=== PATIENT | female | born 1995 | race Hispanic/Latino ===

== ENCOUNTER 2019-10-18 05:41 | Inpatient (IN) | payer MEDICAID ==
[2019-10-18] MEDS ORDERED: FAMOTIDINE 20 MG/2 ML INJ IV ONE (06:31)
[2019-10-18] MEDS ORDERED: METOCLOPRAMIDE 10 MG/2 ML INJ IV ONE (06:31)
[2019-10-18] MEDS ORDERED: BICITRA ORAL LIQD 30ML PO ONE (06:31)
[2019-10-18] MEDS ORDERED: ePHEDrine SULFATE 50 MG/1 ML INJ IV PRN (06:31)
[2019-10-18] MEDS ORDERED: ACETAMINOPHEN 325 MG TAB PO PRN (07:00)
[2019-10-18] MEDS ORDERED: OXYTOCIN 20 UNIT/1000ML DRIP 20 UNITS/1,000 ML BAG IV SCH ×3 (07:00→11:28)
[2019-10-18] MEDS ORDERED: LACTATED RINGERS 1,000 ML IV SCH ×2 (07:00)
[2019-10-18] MEDS ORDERED: ceFAZolin/Water 2 GM/20 ML 2 GM/20 ML SYRINGE IV NR (07:00)
--- NOTE | 2019-10-18 07:00 | Anesthesia Day of Surgery ---
Anesthesia Day of Surgery - Day of Surgery Patient Examined: Yes Patient H&P Reviewed: Yes Patient is NPO: Yes
--- NOTE | 2019-10-18 07:00 | Anesthesia Consultation ---
Anesthesia Consult and Med Hx Date of service: 10/18/19 - Airway Anesthetic Teeth Evaluation: Good ROM Head & Neck: Adequate Mental/Hyoid Distance: Adequate Mallampati Class: Class II Intubation Access Assessment: Probably Good - Pulmonary Exam CTA: Yes - Cardiac Exam Cardiac Exam: RRR - Pre-Operative Health Status ASA Pre-Surgery Classification: ASA2 Proposed Anesthetic Plan: Spinal - Pulmonary Hx Asthma: No - Cardiovascular System Hx Hypertension: No - Central Nervous System Hx Seizures: No Hx Psychiatric Problems: No - Endocrine Hx Renal Disease: No Hx Hypothyroidism: No Hx Hyperthyroidism: No - Hematic Hx Anemia: No Hx Sickle Cell Disease: No - Other Systems Hx Alcohol Use: No
[2019-10-18 07:03] LABS: Hematocrit 32.8 % (30.3-42.9); Hemoglobin 11.2 gm/dl (10.1-14.3); Mean Corpuscular HGB Conc 34 % (30-34); Mean Corpuscular Volume 88 fl (79-97); Platelet Count 276 K/mm3 (140-440); Red Blood Count 3.71 M/mm3 (3.65-5.03); Red Cell Distribution Width 14.4 % (13.2-15.2)
--- NOTE | 2019-10-18 07:47 | History and Physical Report ---
History of Present Illness Date of examination: 10/18/19 Date of admission: 10/18/19 05:41 Chief complaint: I am here for my History of present illness: Patient is a 24-year-old 3 para 1 female who presents for an elective repeat section. She has had an uncomplicated course. She entered into care with [facility] at 12 weeks gestation. Her labs are within normal limits except for her rubella; she is not immune. She is GBS negative. Past History Past Medical History: no pertinent history Past Surgical History: section Family/Genetic History: none Social history: single - Obstetrical History Expected Date of Delivery: 10/22/19 Actual Gestation: 39 Week(s) 4 Day(s) : 3 Para: 1 Number of Living Children: 1 Medications and Allergies Allergies Allergy/AdvReac Type Severity Reaction Status Date / Time No Known Allergies Allergy Verified 12/21/12 23:24 Home Medications Medication Instructions Recorded Confirmed Last Taken Type Ciprofloxacin HCl [Cipro] 500 mg PO Q12H #20 tab 12/22/12 Unknown Rx Phenazopyridine [Pyridium] 200 mg PO PC #9 tablet 12/22/12 Unknown Rx Docusate Sodium [Colace] 100 mg PO BID PRN #60 capsule 10/19/19 Unknown Rx Ibuprofen [Motrin] 800 mg PO Q8HR PRN #40 tablet 10/19/19 Unknown Rx oxyCODONE /ACETAMINOPHEN [Percocet 2 tab PO Q6HR PRN #40 tablet 10/19/19 Unknown Rx 5/325] Active Meds: Active Medications Acetaminophen (Tylenol) 650 mg PO Q4H PRN PRN Reason: Pain, Mild (1-3) Ephedrine Sulfate (Ephedrine Sulfate) 10 mg IV Q2M PRN PRN Reason: Hypotension Lactated Ringer's (Lactated Ringers) 1,000 mls @ 125 mls/hr IV DIRECT LORA Oxytocin/Sodium Chloride (Pitocin/Ns 20 Unit/1000ml Drip) 20 units in 1,000 mls @ 125 mls/hr IV DIRECT LORA Lactated Ringer's (Lactated Ringers) 1,000 mls @ 2,250 mls/hr IV PREOP LORA Stop: 10/19/19 07:27 Last Admin: 10/18/19 07:07 Dose: 2,250 mls/hr Documented by: Cefazolin Sodium (Ancef/Sterile Water 2 Gm/20 Ml) 2 gm in 20 mls @ 80 mls/hr IV PREOP NR; Protocol Stop: 10/18/19 22:00 Review of Systems All systems: negative Constitutional: fatigue - Vital Signs Vital signs: Vital Signs Pulse BP 95 H 109/53 10/18/19 06:15 10/18/19 06:15 Temp Pulse Resp BP Pulse Ox 98.3 F 98 H 14 109/53 96 10/18/19 06:16 10/18/19 06:16 10/18/19 06:16 10/18/19 06:16 10/18/19 06:16 - Physical Exam Breasts: Cardiovascular: Regular rate, Normal S1, Normal S2 Lungs: Positive: Clear to auscultation, Normal air movement Abdomen: Positive: normal appearance, soft, normal bowel sounds. Negative: distention, tenderness Vulva: both: normal Vagina: Positive: normal moisture. Negative: discharge Cervix: Negative: lesion, discharge Uterus: Positive: normal size, normal contour Adnexa: both: normal Anus/Rectum: Positive: normal perianal skin, heme negative. Negative: rectal mass, hemorrhoids Extremities: Deep Tendon Reflex Grade: Normal +2 - Obstetrical FHR: auscultation normal Cervical Dilatation: 0 Uterine Contraction Pattern: Absent Results Result Diagrams: 10/18/19 23:11 Abnormal lab results 10/18/19 Range/Units 06:30 WBC 12.8 H (4.5-11.0) K/mm3 All other labs normal. Assessment and Plan IUP at 39-4/7-week here for elective repeat section. Consents have been signed and placed on the chart. We will proceed with section as planned.
[2019-10-18] MEDS ORDERED: SODIUM CHLORIDE 0.9% IRR 1,500 ML BOTTLE IR ONE (07:50)
[2019-10-18] MEDS ORDERED: ceFAZolin/STERILE WATER 2 GM/20 ML SYRINGE IV ONE (07:50)
[2019-10-18] MEDS ORDERED: WATER FOR IRRIG STERILE 1,500 ML BOTTLE IR ONE (07:50)
[2019-10-18] MEDS ORDERED: ONDANSETRON 4 MG/2 ML INJ ONE (08:58)
[2019-10-18] MEDS ORDERED: KETOROLAC 30 MG/1 ML INJ ONE (09:25)
[2019-10-18] MEDS ORDERED: BUPIVACAINE/PF (0.5%) 5 MG/1 ML 30 ML VIAL INFILTRATI ONE (09:25)
[2019-10-18] MEDS ORDERED: DEXMEDETOMIDINE 200 MCG/2 ML VIAL IV ONE (09:25)
[2019-10-18] MEDS ORDERED: PHENYLEPHRINE/NS 1,000 MCG/10 ML SYRINGE (OR USE) IV ONE (09:25)
[2019-10-18] MEDS ORDERED: GLYCOPYRROLATE 0.4 MG/2 ML INJ ONE (09:25)
--- NOTE | 2019-10-18 09:31 | Procedure Note ---
OB Delivery Note - Delivery Date of Delivery: 10/18/19 Surgeon: JOSH VAIL Estimated blood loss: other (700cc) - Section Preop diagnosis: repeat Postop diagnosis: same section procedure: repeat low transverse Disposition: PACU Complications: none Narrative: see op report - A at 1 minute: 8 at 5 minutes: 9 Gender: Male (3506 grams/ 7 pounds 12 ounces)
[2019-10-18] MEDS ORDERED: dexAMETHasone 20 MG/5 ML VIAL ONE (10:04)
--- NOTE | 2019-10-18 10:08 | Post Anesthesia Evaluation ---
- Post Anesthesia Evaluation Patient Participated: Yes Airway Patent: Yes Stable Respiratory Function: Yes Nausea/Vomiting: No Temp > 96.8F: Yes Pain Manageable: Yes Adequeate Hydration: Yes Anesthesia Complications: No Block Receding Appropriately: Yes
--- NOTE | 2019-10-18 10:09 | Progress Note ---
Regional Anesthesia Block - Regional Anesthesia Block Start Time: 10:00 Stop Time: 10:10 Performed By:: LIONEL GARZA Procedure: U/S guided bilateral tap block performed for post-operative pain requested by Dr. Rose. H&P & labs reviewed. Procedure explained, questions answered, consent obtained. Patient in the supine position with ekg, blood pressure cuff and pulse ox on and working in PACU. Timeout performed immediately before start of procedure. Probe placed in the mid-axillary line and the external oblique, internal oblique, and transverse abdominus muscles identified. Skin was cleansed with 0.5% Chlorahexadine and allowed to dry. A 4" 20 G Burgess echogenic needle was advanced in plane until the tip was in the fascial plane between the internal oblique and the transverse abdominus. After negative aspiration 35 ml/side of [30 ml 0.5% Bupivacaine], [50 mcg dexmedetomidine], [8 mg dexamethasone], and [40 ml sterile saline] was injected in 5 ml increments with negative aspiration in between. Patient tolerated procedure well. Patricia MOLINA
[2019-10-18] MEDS ORDERED: ONDANSETRON 4 MG/2 ML INJ IV PRN (11:28)
[2019-10-18] MEDS ORDERED: SIMETHICONE 80 MG CHEW TAB PO PRN (11:28)
[2019-10-18] MEDS ORDERED: oxyCODONE /ACETAMINOPHEN 5-325MG TAB PO PRN (11:28)
[2019-10-18] MEDS ORDERED: LANOLIN/ZINC/DIMETHICONE (LANSINOH) 7 GM TP PRN (11:28)
[2019-10-18] MEDS ORDERED: WITCH HAZEL/ GLYCERIN PAD TP PRN (11:28)
[2019-10-18] MEDS ORDERED: D5W/LACTATED RINGERS 1,000 ML IV SCH (11:28)
[2019-10-18] MEDS ORDERED: IBUPROFEN 800 MG TAB PO PRN (11:28)
[2019-10-18] MEDS ORDERED: NALOXONE 0.4 MG/1 ML INJ IV PRN (11:28)
[2019-10-18] MEDS: PRENATAL VIT27-FE FUMARATE-FOLIC ACID VIT TAB PO SCH (12:36)
[2019-10-18] MEDS: KETOROLAC 30 MG/1 ML INJ IV PRN ×2 (12:36→17:55)
[2019-10-18] MEDS: MORPHINE 2 MG/1 ML INJ IV PRN ×2 (13:12→21:31)
[2019-10-18 23:24] LABS: Hematocrit 27.8 % (30.3-42.9); Hemoglobin 9.3 gm/dl (10.1-14.3)
[2019-10-19] MEDS: KETOROLAC 30 MG/1 ML INJ IV PRN ×2 (00:22→08:21)
[2019-10-19] MEDS ORDERED: diphenhydrAMINE 50 MG CAP PO PRN (00:40)
[2019-10-19 09:09] VITALS: BP 107/65
[2019-10-19] MEDS: PRENATAL VIT27-FE FUMARATE-FOLIC ACID VIT TAB PO SCH (09:58)
--- NOTE | 2019-10-19 13:36 | Progress Note ---
Assessment and Plan Postop day 1 status post LTCS. Patient is doing extremely well. She is ambulating passing flatus and has tolerated p.o. without difficulty. Patient is requesting to be discharged on today if the baby is okay to go. We will plan for discharge to home today with follow-up in the office in 2 weeks. Subjective - Subjective Date of service: 10/19/19 Interval history: Patient is a 24-year-old 3 para 1 female who presents for an elective repeat section. She has had an uncomplicated course. She entered into care with [facility] at 12 weeks gestation. Her labs are within normal limits except for her rubella; she is not immune. She is GBS negative. Patient reports: appetite normal, voiding normally, pain well controlled, flatus, ambulating normally : doing well Objective - Vital Signs Latest vital signs: Vital Signs Temp Pulse Resp BP BP Pulse Ox 10/19/19 09:06 97.8 F 75 20 107/65 10/19/19 08:21 18 10/19/19 05:28 97.7 F 62 20 103/70 98 10/19/19 00:23 97.5 F L 75 20 104/72 96 10/18/19 21:22 97.9 F 60 20 100/60 97 10/18/19 16:30 98.2 F 58 L 16 103/62 Intake and Output 10/18/19 10/19/19 10/19/19 22:59 06:59 14:59 Intake Total 920 480 440 Output Total 1200 600 Balance -280 -120 440 Intake: Oral 920 480 440 Output: Urine 1200 600 Indwelling Catheter 900 Void 300 600 Other: Total, Intake Amount 240 120 320 Total, Output Amount 300 300 # Voids Void 1 1 - Exam Breasts: Present: deferred Cardiovascular: Present: Regular rate, Normal S1, Normal S2 Lungs: Present: Clear to auscultation, Normal air movement Abdomen: Present: normal appearance, soft, normal bowel sounds Uterus: Present: normal, firm Extremities: Present: normal Incision: Present: normal, dry, dressed - Labs Labs: Abnormal lab results 10/18/19 Range/Units 23:11 Hgb 9.3 L (10.1-14.3) gm/dl Hct 27.8 L (30.3-42.9) %
--- NOTE | 2019-10-19 13:37 | Discharge Summary ---
Providers - Providers Date of Admission: 10/18/19 05:41 Date of discharge: 10/19/19 Attending physician: JOSH VAIL Primary care physician: JOSH VAIL Hospitalization Reason for admission: section Delivery: Procedure: repeat low transverse Incision: normal, dry, intact, dressed baby: male Hospital course: Unremarkable Condition at discharge: Good Disposition: DC-01 TO HOME OR SELFCARE Plan - Discharge Medications Prescriptions: Docusate Sodium [Colace] 100 mg PO BID PRN #60 capsule PRN Reason: Constipation Ibuprofen [Motrin] 800 mg PO Q8HR PRN #40 tablet PRN Reason: Mild Pain Unrelieved By Apap oxyCODONE /ACETAMINOPHEN [Percocet 5/325] 2 tab PO Q6HR PRN #40 tablet PRN Reason: Pain - Provider Discharge Summary Activity: routine, no sex for 6 weeks, no heavy lifting 4 weeks, no strenuous exercise Diet: routine Instructions: routine Additional instructions: [] Smoking cessation referral if applicable(refer to patient education folder for contact #) [] Refer to [facility] Booklet Call your doctor immediately for: * Fever > 100.5 * Heavy vaginal bleeding ( >1 pad per hour) * Severe persistent headache * Shortness of breath * Reddened, hot, painful area to leg or breast * Drainage or odor from incision. * Keep incision clean and dry at all times and follow doctor's instructions regarding bathing/showering - Follow up plan Follow up: JOSH VAIL MD [Primary Care Provider] - 14 Days Forms: [facility] Discharge Summary
--- NOTE | 2019-10-19 13:44 | Operative Report ---
Operative Report Operative Report: Preoperative diagnosis: Intrauterine at 39.3 weeks 2. Previous x1 Postoperative diagnosis: Same Procedure: Repeat low transverse section, Surgeon: Dr. Daiana Rose EBL: 600 cc Urine output: 200 mL IV fluids: 1000 cc mL Findings: Viable male in the vertex weight 7 lbs. 12 oz. Apgars 8 and 9. Otherwise normal pelvic anatomy Specimens: None Complications: None Procedure: The patient was admitted to the OR with IV running and in place. She was properly identified as herself. She was given spinal anesthesia in the OR without difficulty. She was placed in the dorsal supine position with a leftward tilt. A Child catheter was inserted. She was then prepped and draped in the normal sterile fashion. An Allis test was used to confirm adequate anesthesia. Once confirmed, the incision was made with the scalpel and carried to the underlying fascia using the scalpel and the Bovie. The fascia was incised in the midline and incision was extended bilaterally using the curved Van scissors. The fascia was then dissected from the underlying rectus muscles in a series of sharp and blunt dissection using the Van scissors. Muscles were in the in the midline sharply using Metzenbaum scissors and the peritoneum was entered into bluntly using the surgeon's fingers. A bladder blade was then placed into the incision to protect the bladder. Following this the bladder flap was created. Hysterotomy incision was then made in the scalpel. Upon uterine entry, the amniotic sac was ruptured for clear fluid. The infant was then delivered without difficulty.. His mouth and nose were suctioned on the field. The cord was clamped and cut and he was handed to the waiting NICU personnel. The uterus was then exteriorized and cleared of all clots and debris. The hysterotomy incision was then closed in a running locked fashion using 0 Vicryl. The abdomen was then copiously irrigated with warm normal saline. Following this the uterus was replaced into the abdominal cavity. At this point the muscles were reapproximated in the midline using individual sutures of 0 Vicryl. Following this the fascia was closed in a running fashion using 0 Vicryl. Tissue was then copiously irrigated. Skin was closed in a running fashion using 3-0 Monocryl. The sponge lap needle and instrument counts were correct 2. The patient tolerated the procedure well. She was taken to recovery in stable co ndition.
== END 2019-10-19 15:55 | disposition home or self-care (01) | DRG 765 ==
LOC: APU 05:41 → OB 11:13
PROVIDERS: ADMIT Obstetrics & Gynecology; ATTEND Obstetrics & Gynecology
PROC: 10D00Z1 Extraction of Products of Conception, Low, Open Approach (ICD-10-PCS; principal; 2019-10-18)
DX: O34.211 Maternal care for low transverse scar from previous cesarean delivery (principal); R71.0 Precipitous drop in hematocrit; Z37.0 Single live birth; Z3A.39 39 weeks gestation of pregnancy
CPT/HCPCS: 36415; 85014; 85018; 85027; 86592; 86850; 86900; 86901; G0378; J0690; J1100; J1885; J2270; J2370; J2405; J2590; J2765; J3490; J7120; J7121; U0003-CS